=== PATIENT | female | born 1950 | race Caucasian/White ===

== ENCOUNTER 2018-02-10 14:37 | Inpatient (IN) ==
[2018-02-10] MEDS ORDERED: *HR* OxyCODONE Immed Rel 5 MG TABLET PO PRN ×2 (17:14→18:17)
[2018-02-10] MEDS: *HR* OxyCODONE Immed Rel 5 MG TABLET PO PRN ×2 (18:23→22:29)
[2018-02-10] MEDS: *HR* Metformin 500 MG TABLET PO SCH (18:29)
[2018-02-10] MEDS: Gabapentin 400 MG CAPSULE PO SCH (21:44)
[2018-02-11] MEDS: *HR* OxyCODONE Immed Rel 5 MG TABLET PO PRN ×2 (05:17→11:50)
[2018-02-11 06:03] LABS: Basophils % 0.3 %; Eosinophils # 0.3 K/mcL (0.0-0.6); Eosinophils % 3.3 %; Hematocrit 29.5 % (35.3-44.9); Hemoglobin 9.8 g/dL (11.5-15.4); Immature Granulocytes % 0.9 % (0-4); Lymphocytes # 1.9 K/mcL (0.6-4.6); Lymphocytes % 24.8 %; Mean Corpuscular HGB Conc 33.2 g/dL (31.6-35.5); Mean Corpuscular Hemoglobin 30.5 pg (28.0-33.3); Mean Corpuscular Volume 91.9 fL (83.0-100.0); Mean Platelet Volume 10.7 fL (9.4-12.4); Monocytes # 0.5 K/mcL (0.0-1.3); Monocytes % 6.8 %; Platelet Count 186 K/mcL (140-400); Red Blood Count 3.21 M/mcL (3.82-4.97); Red Cell Distribution Width 12.4 % (11.5-14.5); Segmented Neutrophils % 63.9 %
[2018-02-11 06:19] LABS: BUN/Creatinine Ratio 18 (6-26); Blood Urea Nitrogen 14 mg/dL (8-23); Calcium 8.5 mg/dL (8.6-10.3); Carbon Dioxide 31 mEq/L (23-29); Chloride 96 mEq/L (98-107); Glucose 143 mg/dL (70-105); Osmolality,Calculated 285 (280-300); Potassium 3.4 mEq/L (3.5-5.1); Sodium 136 mEq/L (136-145); eGFR For Non-African Americans > 60 (> 60)
[2018-02-11] MEDS: hydroCHLOROthiazide 25 MG TABLET PO SCH (08:07)
[2018-02-11] MEDS: Multivit/Ca/Min/Fe/FA 1 TAB TABLET PO SCH (08:08)
[2018-02-11] MEDS: *HR* Metformin 500 MG TABLET PO SCH ×2 (08:08→17:21)
[2018-02-11] MEDS: Gabapentin 400 MG CAPSULE PO SCH ×2 (08:08→19:48)
[2018-02-11] MEDS: Aspirin Enteric Coated 81 MG Tablet PO SCH (08:08)
[2018-02-11] MEDS: Verapamil ER (24 HR) 240 MG TABLET.ER PO SCH ×2 (08:13→11:50)
--- NOTE | 2018-02-11 08:37 | Internal Med History&Physical ---
Date of Encounter: 02/11/18 Time of Encounter: 08:35 Assessment and Plan (1) HTN (hypertension) Current visit: No Status: Chronic stlighly high today on meds will follow and adjust as needed Qualifiers: Hypertension type: essential hypertension Qualified Code(s): I10 - Essential (primary) hypertension (2) DMII (diabetes mellitus, type 2) Current visit: No Status: Chronic On meds obese Blood sugar TID followup and adjust as needed Qualifiers: Diabetes mellitus longwall foreman insulin use: unspecified longwall foreman insulin use status Diabetes mellitus complication status: with unspecified complications Qualified Code(s): E11.8 - Type 2 diabetes mellitus with unspecified complications (3) Status post lumbar spinal fusion Current visit: No Status: Acute s/p Surgery pain is well controlled with present meds , Some waht constipated on laxatives will follow .PT/OT consult DVT prevention (4) Anemia Current visit: No Status: Acute Most likely chronic in nature will give iron supplement and followup Qualifiers: Anemia type: unspecified type Qualified Code(s): D64.9 - Anemia, unspecified Internal Medicine - H&P: HPI Chief complaint: s/p lumbar fusion Admitted From: Hospital to Hospital Transfer History of present illness: Ms. Calvin is a 68 year old female who was transferred from [facility] s/ p Lumbar fusion for rehab . She started having increase weakness and pain in her legs , MRI showed compression of cord and ended up having surgery. At the present time she complains of some pain on surgical site , constipation however no other complains No chest pain SOB , cough fever or chills No complains of symptoms pertaining to UTI or vaginal discharge No epigastric pain . Past Med Surg Social Fam HX - Past Medical History Medical history: arthritis, diabetes, hyperlipidemia, hypertension Additional medical history: cataracts, Psychiatric history: no psych history - Past Surgical History Surgical History: cataract, herniorrhaphy, hysterectomy, knee replacement, other Additional surgical history: gastric bypass. tonsils,tummy tuck, - Social History Smoking Status: Never smoker Smokeless Tobacco Status: No Alcohol use: none Drug use: none - Family History Father Hx Family Cardiac Disorders: Yes Hx Family Endocrine Disorder: Yes (diabetes) Mother Living Status: Hx Family Cancer: Yes Internal Medicine - H&P: Meds Alendronate Sodium [Fosamax] 70 mg PO WE 01/05/16 [History] Gabapentin [Neurontin] 800 mg PO BID 01/05/16 [History] Verapamil HCl [Verapamil ER] 240 mg PO DAILY 01/05/16 [History] Aspirin [Glynn Aspirin EC] 81 mg PO DAILY 02/07/18 [History] Metformin HCl [Fortamet] 1,000 mg PO BID 02/07/18 [History] Multivitamin [Multivitamins] 1 each PO DAILY 02/07/18 [History] hydroCHLOROthiazide [Hydrochlorothiazide] 25 mg PO DAILY 02/07/18 [History] OxyCODONE Immed Rel [Roxicodone 5 MG] 5 mg PO Q4HR PRN 7 Days #30 tablet [Rx] 3 Allergy/AdvReac Type Severity Reaction Status Date / Time nifedipine [From Procardia] Allergy Intermediate Anxiety Verified 02/07/18 10:45 ibuprofen AdvReac see comment Verified 02/07/18 10:45 All Systems PM: A 10-system review of systems was performed and is negative for pertinent findings except as documented above in the HPI. - Constitutional Constitutional: no anorexia, no chills, no excessive sweating, no fatigue, no fever(s), no falls, no lethargy, no malaise, no night sweats, no weakness, no weight loss - EENT Eyes: no blurry vision, no diplopia, no discharge, no pain, no photophobia, no seeing flashes, no spots in vision Ears: no ear discharge Nose, mouth and throat: no bleeding gums, no dysphagia, no epistaxis, no lip swelling, no nasal congestion, no nasal discharge, no sinus pressure, no sore throat - Cardiovascular Cardiovascular ROS IM: no chest pain, no claudication, no diaphoresis, no dyspnea, no dyspnea on exertion, no edema, no irregular heart rhythm, no lightheadedness, no orthopnea, no palpitations, no paroxysmal nocturnal dyspnea , no syncope - Respiratory Respiratory: no cough, no dyspnea, no hemoptysis, no dyspnea on exertion, no stridor, no pain on inspiration, no chest congestion, no excessive phlegm production, no change in phlegm color, no pain with cough - Gastrointestinal Gastrointestinal: no abdominal pain, no bloating, no change in bowel habits, no change in stool character, no cramping, no diarrhea, no heartburn, no hematemesis, no loose stools, no melena, no nausea Additional comments: constipated - Genitourinary Genitourinary: no nocturia, no urinary hesitancy, no urinary incontinence, no urinary urgency Menstruation: post hysterectomy, post menopausal - Musculoskeletal Musculoskeletal ROS IM: back pain, no muscle cramps, no muscle weakness - Neurological Neurological ROS: no disequilibrium, no dizziness, no focal weakness, no paresthesias, no radicular pain - Constitutional Vitals: Temp Pulse Resp BP Pulse Ox 98.4 F 78 18 156/89 92 02/11/18 07:23 02/11/18 07:23 02/11/18 07:23 02/11/18 07:23 02/11/18 07:23 General appearance: Present: A&O X 3, morbidly obese, pleasant. Absent: severe distress - Head Head exam: Present: atraumatic - Eye Eye exam: Present: EOMI, PERRL Pupils: Present: PERRL - Neck Neck exam general surgery: Present: full ROM, supple. Absent: tenderness, nuchal rigidity - Respiratory Respiratory exam: Present: CTAB. Absent: accessory muscle use, chest wall tenderness, decreased breath sounds, prolonged expiratory phase, respiratory distress, rhonchi, stridor, wheezes, tachypnea - Cardiovascular Cardiovascular exam: Present: RRR, +S1, +S2. Absent: bradycardia, distant heart sounds, gallop, irregular rhythm, JVD - GI/Abdominal GI/Abdominal exam: Present: normal bowel sounds, soft. Absent: distended, firm , guarding, rigid, splenomegaly, tenderness Additional comments: Obese - Extremities Exam Extremities exam: Present: full ROM. Absent: calf tenderness, pedal edema, tenderness, warm - Back Exam Back exam: Absent: muscle spasm Additional comments: has rash associated with dressing - Neurological Exam Neurological exam: Present: CN II-XII intact, oriented X3, no focal deficits, strengths equal and symetr throughout. Absent: facial droop, speech deficit - Skin Skin exam: Present: intact, rash Additional comments: back suggested of local dressing reaction incision intact dressing not removed but its clean no discharge noted Internal Med - H&P Results - Labs CBC & Chem 7: 02/11/18 05:15 02/11/18 05:15 Labs: Short CBC 02/11/18 Range/Units 05:15 WBC 7.8 (4.3-11.1) K/mcL Hgb 9.8 L (11.5-15.4) g/dL Hct 29.5 L (35.3-44.9) % Plt Count 186 (140-400) K/mcL Neutrophils # 5.0 (1.6-8.9) K/mcL BMP 02/11/18 05:15 Sodium 136 Potassium 3.4 L Chloride 96 L Carbon Dioxide 31 H BUN 14 Creatinine 0.77 Glucose 143 H Calcium 8.5 L
[2018-02-12] MEDS: *HR* OxyCODONE Immed Rel 5 MG TABLET PO PRN ×5 (01:03→19:48)
--- NOTE | 2018-02-12 08:17 | Internal Med Progress Note ---
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 insulin use: unspecified terminal gauger supervisor insulin use status Diabetes mellitus complication status: with unspecified complications Qualified Code(s): E11.8 - Type 2 diabetes mellitus with unspecified complications (3) Status post lumbar spinal fusion Current Visit: No Status: Acute Assessment and plan: Wound clean improving slowly getting PT back brace for support (4) Anemia Current Visit: No Status: Acute Assessment and plan: Stable On iron pills Qualifiers: Anemia type: unspecified type Qualified Code(s): D64.9 - Anemia, unspecified - Subjective Interval history: Seen as followup Had a much better night slept well pain is well controlled . had bowel movement . She is walking and actively engaged in PT . Afebrile - Constitutional Vitals: Temp Pulse Resp BP Pulse Ox 98.7 F 62 16 135/81 96 02/12/18 06:53 02/12/18 06:53 02/12/18 06:53 02/12/18 06:53 02/12/18 06:53 General appearance: Present: A&O X 3, morbidly obese, pleasant, answers questions appropriately. Absent: severe distress - Head Head exam: Present: atraumatic - Eye Eye exam: Present: EOMI, PERRL Pupils: Present: PERRL - Neck Neck exam general surgery: Present: supple. Absent: tenderness, nuchal rigidity - Respiratory Respiratory exam: Present: CTAB. Absent: accessory muscle use, chest wall tenderness, decreased breath sounds, respiratory distress, rhonchi, stridor, wheezes, tachypnea - Cardiovascular Cardiovascular exam: Present: RRR, +S1, +S2. Absent: JVD - GI/Abdominal GI/Abdominal exam: Present: normal bowel sounds, soft. Absent: diminished bowel sounds, distended, firm, guarding, rebound, rigid, tenderness - Extremities Exam Extremities exam: Absent: pedal edema, tenderness - Incison Incision: Present: clean and dry. Absent: draining - Neurological Exam Neurological exam: Present: alert, CN II-XII intact, oriented X3, no focal deficits. Absent: facial droop, speech deficit Internal Medicine: Result - Labs CBC & Chem 7: 02/11/18 05:15 02/11/18 05:15 - VTE Documentation of Mechanical Device: Graduated compression elastic hosiery Consult Discharge Plan - Plan Referrals: John Nick Jr, MD [Primary Care Provider] -
[2018-02-12] MEDS: *HR* Metformin 500 MG TABLET PO SCH ×2 (08:22→17:16)
[2018-02-12] MEDS: Verapamil ER (24 HR) 240 MG TABLET.ER PO SCH (08:22)
[2018-02-12] MEDS: Aspirin Enteric Coated 81 MG Tablet PO SCH (08:22)
[2018-02-12] MEDS: Multivit/Ca/Min/Fe/FA 1 TAB TABLET PO SCH (08:22)
[2018-02-12] MEDS: hydroCHLOROthiazide 25 MG TABLET PO SCH (08:22)
[2018-02-12] MEDS: Gabapentin 400 MG CAPSULE PO SCH ×2 (08:22→19:48)
[2018-02-13] MEDS: *HR* OxyCODONE Immed Rel 5 MG TABLET PO PRN ×6 (00:34→22:18)
[2018-02-13 06:12] LABS: Basophils % 0.4 %; Eosinophils # 0.3 K/mcL (0.0-0.6); Eosinophils % 3.6 %; Hematocrit 30.7 % (35.3-44.9); Hemoglobin 10.1 g/dL (11.5-15.4); Immature Granulocytes % 1.3 % (0-4); Mean Corpuscular HGB Conc 32.9 g/dL (31.6-35.5); Mean Corpuscular Hemoglobin 30.4 pg (28.0-33.3); Mean Corpuscular Volume 92.5 fL (83.0-100.0); Mean Platelet Volume 9.7 fL (9.4-12.4); Monocytes # 0.6 K/mcL (0.0-1.3); Neutrophils # 4.1 K/mcL (1.6-8.9); Platelet Count 219 K/mcL (140-400); Red Blood Count 3.32 M/mcL (3.82-4.97); Red Cell Distribution Width 12.8 % (11.5-14.5); Segmented Neutrophils % 58.7 %
[2018-02-13 07:44] LABS: BUN/Creatinine Ratio 19 (6-26); Blood Urea Nitrogen 13 mg/dL (8-23); Carbon Dioxide 31 mEq/L (23-29); Chloride 96 mEq/L (98-107); Glucose 146 mg/dL (70-105); Osmolality,Calculated 283 (280-300); Potassium 3.4 mEq/L (3.5-5.1); Sodium 135 mEq/L (136-145); eGFR For Non-African Americans > 60 (> 60)
[2018-02-13] MEDS: Gabapentin 400 MG CAPSULE PO SCH ×2 (08:08→18:14)
[2018-02-13] MEDS: hydroCHLOROthiazide 25 MG TABLET PO SCH (08:08)
[2018-02-13] MEDS: Multivit/Ca/Min/Fe/FA 1 TAB TABLET PO SCH (08:08)
[2018-02-13] MEDS: Aspirin Enteric Coated 81 MG Tablet PO SCH (08:08)
[2018-02-13] MEDS: *HR* Metformin 500 MG TABLET PO SCH ×2 (08:08→18:10)
[2018-02-13] MEDS: Verapamil ER (24 HR) 240 MG TABLET.ER PO SCH (08:10)
[2018-02-13 10:16] LABS: Estimated Average Glucose 151 mg/dl; Hemoglobin A1C 6.9 %
--- NOTE | 2018-02-13 12:08 | Internal Med Progress Note ---
Date of Encounter: 02/13/18 Time of Encounter: 12:05 - Assessment and plan (1) Status post lumbar spinal fusion Current Visit: Yes Status: Acute Assessment and plan: Continue PT and OT. Continue to wear back brace as instructed. Continue current medications. Follow up with ortho as scheduled. (2) HTN (hypertension) Current Visit: Yes Status: Chronic Assessment and plan: Controlled with current medication. Monitor blood pressure. Qualifiers: Hypertension type: essential hypertension Qualified Code(s): I10 - Essential (primary) hypertension (3) DMII (diabetes mellitus, type 2) Current Visit: Yes Status: Chronic Assessment and plan: Controlled with current medication. Continue to monitor fingerstick blood sugars. Will adjust medications as necessary. Qualifiers: Diabetes mellitus jail insulin use: unspecified terminal operator insulin use status Diabetes mellitus complication status: with unspecified complications Qualified Code(s): E11.8 - Type 2 diabetes mellitus with unspecified complications - Time Spent With Patient less than 15 minutes - Subjective Interval history: Participating well with therapy. States rights sciatic pain. Ambulating with Walker. Wearing back brace. States no bowel movement the past few days. Denies any issues with bladder. Denies fever, chills, nausea vomiting or diarrhea. Denies shortness of breath or chest pain. Maintaining appetite and hydration. - Constitutional Vitals: Temp Pulse Resp BP Pulse Ox 98.4 F 63 16 151/93 95 02/13/18 07:28 02/13/18 07:28 02/13/18 07:28 02/13/18 07:28 02/13/18 07:28 General appearance: Present: A&O X 3, morbidly obese, pleasant, answers questions appropriately. Absent: severe distress - Head Head exam: Present: atraumatic, normocephalic - Eye Eye exam: Present: PERRL, conjuntiva pink, sclera anicteric Pupils: Present: PERRL - Neck Neck exam general surgery: Present: supple, trachea midline. Absent: lymphadenopathy - Respiratory Respiratory exam: Present: CTAB. Absent: accessory muscle use, rales, rhonchi, wheezes - Cardiovascular Cardiovascular exam: Present: RRR, +S1, +S2. Absent: diastolic murmur, gallop, rubs, systolic murmur - GI/Abdominal GI/Abdominal exam: Present: normal bowel sounds, soft, no peritoneal signs. Absent: distended, tenderness - Extremities Exam Extremities exam: Present: warm, radial pulses palpable and symmetrical. Absent : calf tenderness, cyanotic, pedal edema - Neurological Exam Neurological exam: Present: CN II-XII intact, oriented X3, no focal deficits. Absent: pronater drift, facial droop, speech deficit - Skin Skin exam: Present: dry, intact Internal Medicine: Result - Labs CBC & Chem 7: 02/13/18 05:55 02/13/18 05:55 Labs: Short CBC 02/13/18 Range/Units 05:55 WBC 7.0 (4.3-11.1) K/mcL Hgb 10.1 L (11.5-15.4) g/dL Hct 30.7 L (35.3-44.9) % Plt Count 219 (140-400) K/mcL Neutrophils # 4.1 (1.6-8.9) K/mcL BMP 02/13/18 05:55 Sodium 135 L Potassium 3.4 L Chloride 96 L Carbon Dioxide 31 H BUN 13 Creatinine 0.70 Glucose 146 H Calcium 9.0 - VTE Documentation of Mechanical Device: Graduated compression elastic hosiery Consult Discharge Plan - Plan Referrals: John Nick Jr, MD [Primary Care Provider] -
[2018-02-13] MEDS: Methocarbamol 750 MG TABLET PO PRN ×2 (13:40→23:16)
[2018-02-13] MEDS ORDERED: *HR* OxyCODONE Immed Rel 5 MG TABLET PO PRN (14:39)
[2018-02-14] MEDS: *HR* OxyCODONE Immed Rel 5 MG TABLET PO PRN (02:08)
[2018-02-14] MEDS: *HR* OxyCODONE Immed Rel 15 MG TABLET PO PRN ×4 (06:00→21:41)
[2018-02-14] MEDS: Methocarbamol 750 MG TABLET PO PRN ×2 (08:03→20:39)
[2018-02-14] MEDS: Gabapentin 400 MG CAPSULE PO SCH ×2 (08:03→20:29)
[2018-02-14] MEDS: *HR* Metformin 500 MG TABLET PO SCH ×2 (08:04→17:29)
[2018-02-14] MEDS: Multivit/Ca/Min/Fe/FA 1 TAB TABLET PO SCH (08:04)
[2018-02-14] MEDS: Aspirin Enteric Coated 81 MG Tablet PO SCH (08:04)
[2018-02-14] MEDS: hydroCHLOROthiazide 25 MG TABLET PO SCH (08:04)
[2018-02-14] MEDS: Verapamil ER (24 HR) 240 MG TABLET.ER PO SCH (10:29)
--- NOTE | 2018-02-14 11:20 | Internal Med Progress Note ---
Date of Encounter: 02/14/18 Time of Encounter: 11:13 - Assessment and plan (1) Status post lumbar spinal fusion Current Visit: Yes Status: Acute Assessment and plan: Continue PT and OT. Continue to wear back brace as instructed. Continue current medications. Follow up with ortho as scheduled. (2) HTN (hypertension) Current Visit: Yes Status: Chronic Assessment and plan: Controlled with current medication. Monitor blood pressure. Qualifiers: Hypertension type: essential hypertension Qualified Code(s): I10 - Essential (primary) hypertension (3) DMII (diabetes mellitus, type 2) Current Visit: Yes Status: Chronic Assessment and plan: Controlled with current medication. Continue to monitor fingerstick blood sugars. Will adjust medications as necessary. Qualifiers: Diabetes mellitus assistant terminal manager insulin use: unspecified assistant terminal manager insulin use status Diabetes mellitus complication status: with unspecified complications Qualified Code(s): E11.8 - Type 2 diabetes mellitus with unspecified complications (4) Contact dermatitis Current Visit: Yes Status: Acute Assessment and plan: erythematous rash to back, appears to be from moisture and irritation from brace. will monitor and order benadryl for itching. Qualifiers: Contact dermatitis type: unspecified Contact dermatitis trigger: unspecified trigger Qualified Code(s): L25.9 - Unspecified contact dermatitis , unspecified cause - Time Spent With Patient less than 15 minutes - Subjective Interval history: Participating well with therapy. States rights sciatic pain continues but slight improvement from yesterday. Ambulating with Walker. Wearing back brace. bowels moved yesterday. Denies any issues with bladder. Denies fever, chills, nausea vomiting or diarrhea. Denies shortness of breath or chest pain. Maintaining appetite and hydration. c/o back feeling itchy. - Constitutional Vitals: Temp Pulse Resp BP Pulse Ox 97.3 F L 64 16 152/67 95 02/14/18 07:20 02/14/18 07:20 02/14/18 07:20 02/14/18 07:20 02/14/18 07:20 General appearance: Present: A&O X 3, morbidly obese, pleasant, answers questions appropriately. Absent: severe distress - Head Head exam: Present: atraumatic, normocephalic - Eye Eye exam: Present: PERRL, conjuntiva pink, sclera anicteric Pupils: Present: PERRL - Neck Neck exam general surgery: Present: supple, trachea midline. Absent: lymphadenopathy - Respiratory Respiratory exam: Present: CTAB. Absent: accessory muscle use, rales, rhonchi, wheezes - Cardiovascular Cardiovascular exam: Present: RRR, +S1, +S2. Absent: diastolic murmur, gallop, rubs, systolic murmur - GI/Abdominal GI/Abdominal exam: Present: normal bowel sounds, soft, no peritoneal signs. Absent: distended, tenderness - Extremities Exam Extremities exam: Present: warm, radial pulses palpable and symmetrical. Absent : calf tenderness, cyanotic, pedal edema - Incison Comments: lumbar incision, drsg dry and intact. surrounding erythema. skin intact. - Neurological Exam Neurological exam: Present: CN II-XII intact, oriented X3, no focal deficits. Absent: pronater drift, facial droop, speech deficit - Skin Skin exam: Present: dry, intact Internal Medicine: Result - Labs CBC & Chem 7: 02/13/18 05:55 02/13/18 05:55 - VTE Documentation of Mechanical Device: Graduated compression elastic hosiery Consult Discharge Plan - Plan Referrals: John Nick Jr, MD [Primary Care Provider] -
[2018-02-15] MEDS: *HR* OxyCODONE Immed Rel 15 MG TABLET PO PRN ×4 (03:03→21:43)
[2018-02-15] MEDS: Methocarbamol 750 MG TABLET PO PRN (05:57)
[2018-02-15] MEDS: *HR* Metformin 500 MG TABLET PO SCH ×2 (08:25→17:47)
[2018-02-15] MEDS: Gabapentin 400 MG CAPSULE PO SCH (08:25)
[2018-02-15] MEDS: Multivit/Ca/Min/Fe/FA 1 TAB TABLET PO SCH (08:26)
[2018-02-15] MEDS: Aspirin Enteric Coated 81 MG Tablet PO SCH (08:26)
[2018-02-15] MEDS: hydroCHLOROthiazide 25 MG TABLET PO SCH (08:26)
[2018-02-15] MEDS: Verapamil ER (24 HR) 240 MG TABLET.ER PO SCH (08:26)
--- NOTE | 2018-02-15 10:47 | Internal Med Progress Note ---
Date of Encounter: 02/15/18 Time of Encounter: 10:45 - Assessment and plan (1) Status post lumbar spinal fusion Current Visit: Yes Status: Acute Assessment and plan: No acute issues. Patient continues to complain of radicular symptoms down the right hip around to her right groin. States the pain is similar in characteristics to preoperative pain. Has a slight pain to surgical site on lumbar area. Surgical incision appears healthy. She continues to use TLSO brace. Noted only slight right hip antalgic weakness. We will continue with physical therapy. Pain is minimal managed with current medications. (2) HTN (hypertension) Current Visit: Yes Status: Chronic Assessment and plan: Vital signs stable. We will continue with current medications Qualifiers: Hypertension type: essential hypertension Qualified Code(s): I10 - Essential (primary) hypertension (3) DMII (diabetes mellitus, type 2) Current Visit: Yes Status: Chronic Assessment and plan: No acute issues. Fingerstick showed glucose has been fairly well-controlled with most readings less than 150. We will continue with sliding scale coverage and current regimen Qualifiers: Diabetes mellitus longterm insulin use: unspecified medical terminologist insulin use status Diabetes mellitus complication status: with unspecified complications Qualified Code(s): E11.8 - Type 2 diabetes mellitus with unspecified complications - Time Spent With Patient less than 15 minutes - Subjective Interval history: Patient currently appears relaxed but has complaints of radicular pain that radiates down her right hip crosses over into the right groin area. She states that her pain as intermittent and progresses during mobilization. Patient states that the characteristics of the pain are quite similar to preoperative symptoms. Denies any incontinence or retention symptoms. Denies any paresthesia. Patient states that her pain has been managed well with current oral medications. - Constitutional Vitals: Temp Pulse Resp BP Pulse Ox 97.0 F L 64 16 158/68 95 02/15/18 07:24 02/15/18 07:24 02/15/18 07:24 02/15/18 07:24 02/15/18 07:24 General appearance: Present: A&O X 3, morbidly obese, pleasant, answers questions appropriately. Absent: severe distress - Head Head exam: Present: atraumatic, normocephalic - Eye Eye exam: Present: PERRL, conjuntiva pink, sclera anicteric Pupils: Present: PERRL - Neck Neck exam general surgery: Present: supple, trachea midline. Absent: lymphadenopathy - Respiratory Respiratory exam: Present: CTAB. Absent: accessory muscle use, rales, rhonchi, wheezes - Cardiovascular Cardiovascular exam: Present: RRR, +S1, +S2. Absent: diastolic murmur, gallop, rubs, systolic murmur - GI/Abdominal GI/Abdominal exam: Present: normal bowel sounds, soft, no peritoneal signs. Absent: distended, tenderness - Extremities Exam Extremities exam: Present: warm, radial pulses palpable and symmetrical. Absent : calf tenderness, cyanotic, pedal edema - Back Exam Additional comments: Midline lumbar surgical incision appears dry and intact. No drainage or edema noted. Noted slight rash to lumbar area. TLSO brace and use. - Neurological Exam Neurological exam: Present: CN II-XII intact, oriented X3, no focal deficits. Absent: pronater drift, facial droop, speech deficit Additional comments: No focal deficits noted on exam. Patient with an antalgic weakness to right hip. - Skin Skin exam: Present: dry, intact Internal Medicine: Result - Labs CBC & Chem 7: 02/13/18 05:55 02/13/18 05:55 - VTE Documentation of Mechanical Device: Graduated compression elastic hosiery Consult Discharge Plan - Plan Referrals: John Nick Jr, MD [Primary Care Provider] -
[2018-02-15] MEDS ORDERED: tiZANidine 4 MG TABLET PO SCH (15:00)
[2018-02-15] MEDS: Gabapentin 300 MG CAPSULE PO SCH ×2 (15:03→21:42)
[2018-02-15] MEDS ORDERED: NON-FORMULARY MEDICATION 1 EACH EACH (Alendronate Sodium [Fosamax] 70 MG) PO SCH (17:14)
[2018-02-16] MEDS: Methocarbamol 750 MG TABLET PO PRN ×2 (00:35→09:20)
[2018-02-16] MEDS: *HR* OxyCODONE Immed Rel 15 MG TABLET PO PRN ×5 (01:48→19:58)
[2018-02-16] MEDS: Multivit/Ca/Min/Fe/FA 1 TAB TABLET PO SCH (08:22)
[2018-02-16] MEDS: Magnesium Oxide 400 MG TABLET PO SCH (08:22)
[2018-02-16] MEDS: *HR* Metformin 500 MG TABLET PO SCH ×2 (08:22→17:21)
[2018-02-16] MEDS: Aspirin Enteric Coated 81 MG Tablet PO SCH (08:23)
[2018-02-16] MEDS: hydroCHLOROthiazide 25 MG TABLET PO SCH (08:23)
[2018-02-16] MEDS: Verapamil ER (24 HR) 240 MG TABLET.ER PO SCH (08:23)
[2018-02-16] MEDS: Gabapentin 300 MG CAPSULE PO SCH ×3 (08:23→19:57)
--- NOTE | 2018-02-16 11:14 | Internal Med Progress Note ---
Date of Encounter: 02/16/18 Time of Encounter: 11:11 - Assessment and plan (1) Status post lumbar spinal fusion Current Visit: Yes Status: Acute Assessment and plan: No acute issues. Patient continues to complain of radicular symptoms down the right hip around to her right groin. States the pain is similar in characteristics to preoperative pain. Surgical incision appears healthy. She continues to use TLSO brace. Tried use of Zanaflex yesterday, but patient has sensitivity to it and will continue on Robaxin. We will continue with physical therapy. Pain is minimal managed with current medications. (2) HTN (hypertension) Current Visit: Yes Status: Chronic Assessment and plan: Vital signs stable. We will continue with current medications Qualifiers: Hypertension type: essential hypertension Qualified Code(s): I10 - Essential (primary) hypertension (3) DMII (diabetes mellitus, type 2) Current Visit: Yes Status: Chronic Assessment and plan: No acute issues. Fingerstick showed glucose has been fairly well-controlled with most readings less than 150. We will continue with sliding scale coverage and current regimen Qualifiers: Diabetes mellitus director long term care insulin use: unspecified snf insulin use status Diabetes mellitus complication status: with unspecified complications Qualified Code(s): E11.8 - Type 2 diabetes mellitus with unspecified complications - Time Spent With Patient less than 15 minutes - Subjective Interval history: Patient continues to appear relaxed but continues to have complaints of radicular pain that radiates down her right hip crosses over into the right groin area. She states that her pain as intermittent and progresses during mobilization and that it has been improving. Patient states that the characteristics of the pain are quite similar to preoperative symptoms. Denies any incontinence or retention symptoms. Denies any paresthesia. Patient states that her pain has been managed well with current oral medications. Patient was changed to Zanaflex yesterday for muscle spasms, but had a sensitivity response with the medications during which she became hypotensive and lightheaded. She was changed back to her Robaxin and today denies any similar symptoms. - Constitutional Vitals: Temp Pulse Resp BP Pulse Ox 97.8 F 67 16 160/76 96 02/16/18 06:34 02/16/18 06:34 02/16/18 06:34 02/16/18 06:34 02/16/18 06:34 General appearance: Present: A&O X 3, morbidly obese, pleasant, answers questions appropriately. Absent: severe distress - Head Head exam: Present: atraumatic, normocephalic - Eye Eye exam: Present: PERRL, conjuntiva pink, sclera anicteric Pupils: Present: PERRL - Neck Neck exam general surgery: Present: supple, trachea midline. Absent: lymphadenopathy - Respiratory Respiratory exam: Present: CTAB. Absent: accessory muscle use, rales, rhonchi, wheezes - Cardiovascular Cardiovascular exam: Present: RRR, +S1, +S2. Absent: diastolic murmur, gallop, rubs, systolic murmur - GI/Abdominal GI/Abdominal exam: Present: normal bowel sounds, soft, no peritoneal signs. Absent: distended, tenderness - Extremities Exam Extremities exam: Present: warm, radial pulses palpable and symmetrical. Absent : calf tenderness, cyanotic, pedal edema - Back Exam Additional comments: Midline lumbar incision remains dry and intact and appears to healing well. No edema or echymsis - Neurological Exam Neurological exam: Present: CN II-XII intact, oriented X3, no focal deficits. Absent: pronater drift, facial droop, speech deficit Additional comments: Patient continues to have radicular symptoms of pain that radiates down the right hip and around to the right groin. Denies any paresthesia - Skin Skin exam: Present: dry, intact Internal Medicine: Result - Labs CBC & Chem 7: 02/13/18 05:55 02/13/18 05:55 - VTE Documentation of Mechanical Device: Graduated compression elastic hosiery Consult Discharge Plan - Plan Referrals: John Nick Jr, MD [Primary Care Provider] -
[2018-02-17] MEDS: *HR* OxyCODONE Immed Rel 15 MG TABLET PO PRN ×6 (01:02→23:17)
[2018-02-17] MEDS: Methocarbamol 750 MG TABLET PO PRN ×2 (02:58→16:41)
[2018-02-17 06:34] LABS: Hematocrit 31.7 % (35.3-44.9); Hemoglobin 10.6 g/dL (11.5-15.4); Mean Corpuscular HGB Conc 33.4 g/dL (31.6-35.5); Mean Corpuscular Hemoglobin 30.6 pg (28.0-33.3); Mean Corpuscular Volume 91.6 fL (83.0-100.0); Mean Platelet Volume 9.3 fL (9.4-12.4); Platelet Count 284 K/mcL (140-400); Red Blood Count 3.46 M/mcL (3.82-4.97); Red Cell Distribution Width 12.8 % (11.5-14.5)
[2018-02-17 06:52] LABS: BUN/Creatinine Ratio 20 (6-26); Blood Urea Nitrogen 16 mg/dL (8-23); Calcium 9.2 mg/dL (8.6-10.3); Carbon Dioxide 29 mEq/L (23-29); Chloride 95 mEq/L (98-107); Glucose 145 mg/dL (70-105); Magnesium 1.9 mg/dL (1.6-2.6); Osmolality,Calculated 282 (280-300); Potassium 3.8 mEq/L (3.5-5.1); Sodium 134 mEq/L (136-145); eGFR For Non-African Americans > 60 (> 60)
[2018-02-17] MEDS: Aspirin Enteric Coated 81 MG Tablet PO SCH (08:04)
[2018-02-17] MEDS: *HR* Metformin 500 MG TABLET PO SCH ×2 (08:05→16:41)
[2018-02-17] MEDS: Magnesium Oxide 400 MG TABLET PO SCH (08:05)
[2018-02-17] MEDS: hydroCHLOROthiazide 25 MG TABLET PO SCH (08:05)
[2018-02-17] MEDS: Gabapentin 300 MG CAPSULE PO SCH ×3 (08:05→21:02)
[2018-02-17] MEDS: Multivit/Ca/Min/Fe/FA 1 TAB TABLET PO SCH (08:05)
[2018-02-17] MEDS: Verapamil ER (24 HR) 240 MG TABLET.ER PO SCH (08:05)
--- NOTE | 2018-02-17 09:51 | Internal Med Progress Note ---
Date of Encounter: 02/17/18 Time of Encounter: 09:49 - Assessment and plan (1) Status post lumbar spinal fusion Current Visit: Yes Status: Acute Assessment and plan: No acute issues. Patient continues to complain of radicular symptoms down the right hip around to her right groin. States the pain is similar in characteristics to preoperative pain. Surgical incision appears healthy. She continues to use TLSO brace. Continued complaints of occasional muscle spasms. We will continue on Robaxin current pain medications. Patient continues to participate in physical therapy and progressing well. (2) HTN (hypertension) Current Visit: Yes Status: Chronic Assessment and plan: Vital signs stable. We will continue with current medications Qualifiers: Hypertension type: essential hypertension Qualified Code(s): I10 - Essential (primary) hypertension (3) DMII (diabetes mellitus, type 2) Current Visit: Yes Status: Chronic Assessment and plan: No acute issues. Fingerstick showed glucose has been fairly well-controlled with most readings less than 150. We will continue with sliding scale coverage and current regimen Qualifiers: Diabetes mellitus internist medical doctor md insulin use: unspecified assisted insulin use status Diabetes mellitus complication status: with unspecified complications Qualified Code(s): E11.8 - Type 2 diabetes mellitus with unspecified complications - Time Spent With Patient less than 15 minutes - Subjective Interval history: Patient continues to complain of right hip and leg radicular symptoms that intermittently occurred. Patient states that her pain is somewhat better controlled over the past few days with current adjustments. Patient states that her pain is similar to her preoperative symptoms patient describes pain as a sharp pain that radiates down the right hip. States that she occasionally has some muscle spasms that accompanied the pain. Denies any decreased sensation. Denies any motor deficits. Denies any other discomforts or shortness of breath. Denies any constipation - Constitutional Vitals: Temp Pulse Resp BP Pulse Ox 98.1 F 60 16 143/60 94 02/17/18 07:00 02/17/18 07:00 02/17/18 07:00 02/17/18 07:00 02/17/18 07:00 General appearance: Present: A&O X 3, morbidly obese, pleasant, answers questions appropriately. Absent: severe distress - Head Head exam: Present: atraumatic, normocephalic - Eye Eye exam: Present: PERRL, conjuntiva pink, sclera anicteric Pupils: Present: PERRL - Neck Neck exam general surgery: Present: supple, trachea midline. Absent: lymphadenopathy - Respiratory Respiratory exam: Present: CTAB. Absent: accessory muscle use, rales, rhonchi, wheezes Additional comments: Lungs are clear throughout upper roberto and diminished towards basilar roberto. Respiratory effort appears relaxed. No productive cough noted. - Cardiovascular Cardiovascular exam: Present: RRR, +S1, +S2. Absent: diastolic murmur, gallop, rubs, systolic murmur - GI/Abdominal GI/Abdominal exam: Present: normal bowel sounds, soft, no peritoneal signs. Absent: distended, tenderness - Extremities Exam Extremities exam: Present: warm, radial pulses palpable and symmetrical. Absent : calf tenderness, cyanotic, pedal edema - Back Exam Additional comments: Midline lumbar incision appears dry and intact with no erythema noted. Patient continues to have some redness to her lower back area, but appears in a pattern of her TLSO brace. TLSO brace in place. - Neurological Exam Neurological exam: Present: CN II-XII intact, oriented X3, no focal deficits. Absent: pronater drift, facial droop, speech deficit Additional comments: Patient continues to have sharp intermittent radicular pain down the right hip and leg. Patient states that the pain goes down the right hip and comes around anteriorly course the groin. Lungs all extremities with equal strength with motor strength at 5/5. Slight tenderness on right hip flexion. No decreased sensation noted - Skin Skin exam: Present: dry, intact Internal Medicine: Result - Labs CBC & Chem 7: 02/17/18 06:25 02/17/18 06:25 Labs: Short CBC 02/17/18 Range/Units 06:25 WBC 7.2 (4.3-11.1) K/mcL Hgb 10.6 L (11.5-15.4) g/dL Hct 31.7 L (35.3-44.9) % Plt Count 284 (140-400) K/mcL BMP 02/17/18 06:25 Sodium 134 L Potassium 3.8 Chloride 95 L Carbon Dioxide 29 BUN 16 Creatinine 0.79 Glucose 145 H Calcium 9.2 - VTE Documentation of Mechanical Device: Graduated compression elastic hosiery Consult Discharge Plan - Plan Referrals: John Nick Jr, MD [Primary Care Provider] -
--- NOTE | 2018-02-17 11:43 | Discharge Summary ---
Orders not resulted at time of discharge: Pending orders 02/20/18 14:36 MRSA Surveillance Screen [MOLMIC] Routine Date of Encounter: 02/20/18 Time of Encounter: 11:40 - Discharge Diagnosis (1) Status post lumbar spinal fusion Priority: Primary Status: Acute Comments: Patient was admitted to this facility for rehabilitation after having a and L3- 4 toribio/fix/fusion. Patient recovery at [facility] was uneventful. Patient was admitted here for rehabilitation and progressed well during her stay. Patient noted ambulating in [place] with the walker. Patient continued to have postoperative pain with radicular symptoms down the right hip that would radiate along to the right groin anteriorly. Patient's pain medications were titrated and patient states effectiveness but that her pain would escalate during mobilization. Surgical incision remained healthy and intact. Patient did have reddened areas to the lower lumbar area, likely secondary to wearing her TLSO brace continuously. Patient is to continue follow-up with her orthopedic surgeon and with her PCP after discharge. (2) HTN (hypertension) Priority: Secondary Status: Chronic Comments: No acute issues during her stay at this facility. Vital signs remained stable. Patient did have some low blood pressure after starting on Zanaflex. Patient was currently sensitive Zanaflex and it was discontinued and changed back to Robaxin. Patient pressures remained stable since restarting Robaxin. Patient recommended to continue home medications after discharge and follow-up PCP Qualifiers: Hypertension type: essential hypertension Qualified Code(s): I10 - Essential (primary) hypertension (3) DMII (diabetes mellitus, type 2) Priority: Secondary Status: Chronic Comments: Patients glucose has been well controlled during her stay at this facility. Patient is to continue with current home medications after discharge and follow- up with PCP Qualifiers: Diabetes mellitus halfway insulin use: unspecified halfway insulin use status Diabetes mellitus complication status: with unspecified complications Qualified Code(s): E11.8 - Type 2 diabetes mellitus with unspecified complications Hospital course: Ms. Calvin is a 68 year old female , who was admitted to this facility for rehabilitation secondary to deconditioning after having a lumbar L3-4 toribio/fix/ fusion. Patient had an uneventful recovery and was transferred to this facility where she has dissipated and physical therapy and has progressed well. Patient has had some issues with pain control, stating she continues to have radicular symptoms of pain that radiates down her right hip and crosses over anteriorly to her right groin. Patient states occasionally she does have muscle spasms that are also involved. Denies any decreased sensory or motor function. Patient states that these symptoms were similar to her preoperative symptoms. Patient's pain medications have been titrated and currently she states tolerable with current pain regimen. Patient has been ambulating with walker and continues to progress well. Surgical incision remains intact but appears reddened along the incision. Patient has had daily dressing changes and was started on doxycycline until she can be seen by her surgeon. Patient wears TLSO continuously although she can take it off while in bed. Patient recommended to follow up with her orthopedic surgeon tomorrow and to make an appointment with her PCP due to her admitted history of hypertension and diabetes. Patient's glucose has been well controlled during her stay at this facility requiring minimal sliding scale coverage. Discharge discussed with: patient Time spent discussing smoking cessation with patient: 3 to 10 minutes - Time Spent with Patient Total time spent providing and/or coordinating discharge services: Less than 30 minutes - Discharge Medications Home Medications: Alendronate Sodium [Fosamax] 70 mg PO WE 01/05/16 [History] Gabapentin [Neurontin] 800 mg PO BID 01/05/16 [History] Verapamil HCl [Verapamil ER] 240 mg PO DAILY 01/05/16 [History] Aspirin [[place] Aspirin EC] 81 mg PO DAILY 02/07/18 [History] Metformin HCl [Fortamet] 1,000 mg PO BID 02/07/18 [History] Multivitamin [Multivitamins] 1 each PO DAILY 02/07/18 [History] hydroCHLOROthiazide [Hydrochlorothiazide] 25 mg PO DAILY 02/07/18 [History] OxyCODONE Immed Rel [Roxicodone 5 MG] 5 mg PO Q4HR PRN 7 Days #30 tablet [Rx] Allergies/Adverse Reactions: 3 Allergy/AdvReac Type Severity Reaction Status Date / Time nifedipine [From Procardia] Allergy Intermediate Anxiety Verified 02/07/18 10:45 Tizanidine [From Zanaflex] AdvReac Severe Hypotension Verified 02/16/18 12:18 ibuprofen AdvReac see comment Verified 02/07/18 10:45 Date of admission: 02/10/18 16:58 Primary care physician: John Ncik Jr MD Consults: 02/10/18 17:15 Consult to Occupational Therapy [CONS] Routine Comment: Evaluate, develop and implement POC Reason for Consult: eval Does patient have active BEDREST order?: No Is patient medically & hemodynamically stable?: Yes Consult to Physical Therapy [CONS] Routine Comment: Evaluate, develop and implement POC Reason for Consult: eval Does patient have active BEDREST order?: No Is patient medically & hemodynamically stable?: No Consult to Recreational Therapy [CONS] Routine Comment: Evaluate, develop and implement POC Consult to Envelope Sealer Operator [CONS] Routine Reason for SW Consult: d/c planning 02/13/18 15:42 Consult to Physical Medicine/Rehab [CONS] Routine Reason for Consult: Please evaluate and manage therapies' guidelines and recommend pathway to reconditioning. Time Notified: 13:00 Call Completed: Yes Discharging clinician: Ramiro Jarrett - Constitutional Vitals: Temp Pulse Resp BP Pulse Ox 98.1 F 60 16 143/60 94 02/17/18 07:00 02/17/18 07:00 02/17/18 07:00 02/17/18 07:00 02/17/18 07:00 General appearance: Present: A&O X 3, morbidly obese, pleasant, answers questions appropriately. Absent: severe distress - Head Head exam: Present: atraumatic, normocephalic - Eye Eye exam: Present: PERRL, conjuntiva pink, sclera anicteric Pupils: Present: PERRL - Neck Neck exam general surgery: Present: supple, trachea midline. Absent: lymphadenopathy - Respiratory Respiratory exam: Present: CTAB. Absent: accessory muscle use, rales, rhonchi, wheezes - Cardiovascular Cardiovascular exam: Present: RRR, +S1, +S2. Absent: diastolic murmur, gallop, rubs, systolic murmur - GI/Abdominal GI/Abdominal exam: Present: normal bowel sounds, soft, no peritoneal signs. Absent: distended, tenderness - Extremities Exam Extremities exam: Present: warm, radial pulses palpable and symmetrical. Absent : calf tenderness, cyanotic, pedal edema - Back Exam Additional comments: Midline lumbar incision appears intact, but has moderate amount of erythema along borders. Currently no drainage received. Surrounding lumbar area slightly reddened from the continuous use of TLSO brace which remains in place - Neurological Exam Neurological exam: Present: CN II-XII intact, oriented X3, no focal deficits. Absent: pronater drift, facial droop, speech deficit - Skin Skin exam: Present: dry, intact - Patient Status Disposition: Home, Self-Care Condition: Good Functional capacity at discharge: uses cane/walker Overall status at discharge: patient is progressing back to baseline - Discharge Instructions Follow Up With: John Nick Jr, MD [Primary Care Provider] - - Diet and Activity Activity: ambulate only with your walker, as per physical therapy, increase activity as tolerated Diet: diabetic diet - VTE Documentation of Mechanical Device: Graduated compression elastic hosiery
[2018-02-18] MEDS: Methocarbamol 750 MG TABLET PO PRN ×3 (00:59→17:41)
[2018-02-18] MEDS: *HR* OxyCODONE Immed Rel 15 MG TABLET PO PRN ×4 (04:49→20:07)
[2018-02-18] MEDS: Multivit/Ca/Min/Fe/FA 1 TAB TABLET PO SCH (08:05)
[2018-02-18] MEDS: *HR* Metformin 500 MG TABLET PO SCH ×2 (08:05→17:29)
[2018-02-18] MEDS: Gabapentin 300 MG CAPSULE PO SCH ×3 (08:05→20:00)
[2018-02-18] MEDS: Verapamil ER (24 HR) 240 MG TABLET.ER PO SCH (08:05)
[2018-02-18] MEDS: Aspirin Enteric Coated 81 MG Tablet PO SCH (08:06)
[2018-02-18] MEDS: hydroCHLOROthiazide 25 MG TABLET PO SCH (08:06)
[2018-02-18] MEDS: Magnesium Oxide 400 MG TABLET PO SCH (08:08)
--- NOTE | 2018-02-18 16:29 | Internal Med Progress Note ---
Date of Encounter: 02/18/18 Time of Encounter: 16:27 - Assessment and plan (1) Status post lumbar spinal fusion Current Visit: Yes Status: Acute Assessment and plan: She continues to well with therapies and is proceeding to discharge in a couple or 3 days. (2) DMII (diabetes mellitus, type 2) Current Visit: Yes Status: Chronic Assessment and plan: This is clinically stable and we will continue current regimen and follow. 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 We will continue current regimen and follow. Qualifiers: Hypertension type: essential hypertension Qualified Code(s): I10 - Essential (primary) hypertension (4) Acute blood loss anemia Current Visit: No Status: Acute Assessment and plan: This is clinically stable and well tolerated, symptomatically. (5) Contact dermatitis Current Visit: Yes Status: Acute Assessment and plan: This is improving. Qualifiers: Contact dermatitis type: unspecified Contact dermatitis trigger: unspecified trigger Qualified Code(s): L25.9 - Unspecified contact dermatitis , unspecified cause - Subjective Interval history: Patient states she is doing fine. She has chronic back pain but this is actually improved. She also states that her leg pain is improving. She has been moving bowels and bladder well without complaint. Discussed her discharge on Tuesday or Tuesday. Patient has no complaint of chest discomfort, dyspnea, orthopnea, palpitations, nausea or vomiting, constipation or diarrhea, other changes in bowel habits, difficulty with urination, rash or itching, or other new complaints, except as mentioned above. Review of systems is otherwise negative. I discussed management of her care with nursing staff. - Constitutional Vitals: Temp Pulse Resp BP Pulse Ox 97.9 F 65 16 137/77 95 02/18/18 09:00 02/18/18 07:39 02/18/18 07:39 02/18/18 07:39 02/18/18 07:39 General appearance: Present: pleasant Exam: Examination: (Except as mentioned above): General: In no apparent distress. Alert and oriented 3. Nondiaphoretic. Head: Atraumatic and normocephalic. Respiratory: No use of accessory muscles. Lungs are clear throughout. Normal airflow. Cardiovascular: Regular rate and rhythm without murmur appreciated. Abdomen: Bowel sounds are normal. No hepatosplenomegaly mass or tenderness appreciated. Obese and therefore difficult to palpate deeply. Extremities: No cyanosis clubbing or edema. Skin: Warm and non-diaphoretic with no new lesions noted. Internal Medicine: Result - Labs CBC & Chem 7: 02/17/18 06:25 02/17/18 06:25 - VTE Documentation of Mechanical Device: Graduated compression elastic hosiery Consult Discharge Plan - Plan Referrals: John Nick Jr, MD [Primary Care Provider] -
[2018-02-19] MEDS: *HR* OxyCODONE Immed Rel 15 MG TABLET PO PRN ×5 (00:20→17:26)
[2018-02-19] MEDS: Methocarbamol 750 MG TABLET PO PRN ×3 (01:24→20:00)
[2018-02-19] MEDS: Gabapentin 300 MG CAPSULE PO SCH ×3 (08:21→19:59)
[2018-02-19] MEDS: Aspirin Enteric Coated 81 MG Tablet PO SCH (08:22)
[2018-02-19] MEDS: Multivit/Ca/Min/Fe/FA 1 TAB TABLET PO SCH (08:22)
[2018-02-19] MEDS: *HR* Metformin 500 MG TABLET PO SCH ×2 (08:22→17:26)
[2018-02-19] MEDS: Verapamil ER (24 HR) 240 MG TABLET.ER PO SCH (08:22)
[2018-02-19] MEDS: hydroCHLOROthiazide 25 MG TABLET PO SCH (08:22)
[2018-02-19] MEDS: Magnesium Oxide 400 MG TABLET PO SCH (08:24)
--- NOTE | 2018-02-19 12:59 | Internal Med Progress Note ---
Date of Encounter: 02/19/18 Time of Encounter: 12:57 - Assessment and plan (1) Status post lumbar spinal fusion Current Visit: Yes Status: Acute Assessment and plan: Patient noted to have a minimal amount of serous type drainage status and present in her dressing from her midline lower lumbar surgical incision. Surgical incision remains intact but noted increased erythema surrounding the incision. No tenderness or drainage expelled during palpation. Afebrile. Most recent WBC at 10. Patient continues to complain of radicular symptoms down the right hip around to her right groin. States the pain is similar in characteristics to preoperative pain. Surgical incision appears healthy. She continues to use TLSO brace. Patient is scheduled to follow-up with orthopedics on Tuesday. We will have nursing paint surgical incision with Betadine and change dressing daily. We will start doxycycline. Patient denies any headaches or any other symptoms of a possible dura leak. Patient continues to participate in physical therapy and progressing well. Continues to be prepared for possible discharge tomorrow (2) HTN (hypertension) Current Visit: Yes Status: Chronic Assessment and plan: Vital signs stable. We will continue with current medications Qualifiers: Hypertension type: essential hypertension Qualified Code(s): I10 - Essential (primary) hypertension (3) DMII (diabetes mellitus, type 2) Current Visit: Yes Status: Chronic Assessment and plan: No acute issues. Fingerstick showed glucose has been fairly well-controlled with most readings less than 150. 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 Patient denies any fever or chills. Patient denies any pain to the surgical incision. Patient continues to complain of right hip and leg radicular symptoms that intermittently occurred. Patient states that her pain is somewhat better controlled over the past few days with current adjustments. Patient states that her pain is similar to her preoperative symptoms patient describes pain as a sharp pain that radiates down the right hip. Denies any decreased sensation. Denies any motor deficits. Denies any other discomforts or shortness of breath. Denies any constipation - Constitutional Vitals: Temp Pulse Resp BP Pulse Ox 98.5 F 58 16 160/93 97 02/19/18 07:19 02/19/18 07:19 02/19/18 07:19 02/19/18 07:19 02/19/18 07:19 General appearance: Present: A&O X 3, pleasant - Head Head exam: Present: atraumatic, normocephalic - Eye Eye exam: Present: PERRL, conjuntiva pink, sclera anicteric Pupils: Present: PERRL - Neck Neck exam general surgery: Present: supple, trachea midline. Absent: lymphadenopathy - Respiratory Respiratory exam: Present: CTAB. Absent: accessory muscle use, rales, rhonchi, wheezes - Cardiovascular Cardiovascular exam: Present: RRR, +S1, +S2. Absent: diastolic murmur, gallop, rubs, systolic murmur - GI/Abdominal GI/Abdominal exam: Present: normal bowel sounds, soft, no peritoneal signs. Absent: distended, tenderness - Extremities Exam Extremities exam: Present: warm, radial pulses palpable and symmetrical. Absent : calf tenderness, cyanotic, pedal edema - Back Exam Additional comments: Midline lumbar incision currently appears intact but noted erythema surrounding incision area. Noted serous-type drainage 2 surgical dressing but no drainage noted directly from incision. No tenderness on palpation. No drainage expelled during palpation - Neurological Exam Neurological exam: Present: CN II-XII intact, oriented X3, no focal deficits. Absent: pronater drift, facial droop, speech deficit Additional comments: Slight pain on right hip drain right leg left. No hyperreflexia or clonus - Skin Skin exam: Present: dry, intact Internal Medicine: Result - Labs CBC & Chem 7: 02/17/18 06:25 02/17/18 06:25 - VTE Documentation of Mechanical Device: Graduated compression elastic hosiery Consult Discharge Plan - Plan Referrals: John Nick Jr, MD [Primary Care Provider] -
[2018-02-19] MEDS: Doxycycline 100 MG CAPSULE PO SCH (19:59)
[2018-02-19] MEDS: *HR* OxyCODONE Immed Rel 5 MG TABLET PO PRN (21:40)
[2018-02-20] MEDS: *HR* OxyCODONE Immed Rel 15 MG TABLET PO PRN ×3 (02:24→11:07)
[2018-02-20 08:17] VITALS: BP 140/66
[2018-02-20] MEDS: hydroCHLOROthiazide 25 MG TABLET PO SCH (08:29)
[2018-02-20] MEDS: Verapamil ER (24 HR) 240 MG TABLET.ER PO SCH (08:29)
[2018-02-20] MEDS: Multivit/Ca/Min/Fe/FA 1 TAB TABLET PO SCH (08:29)
[2018-02-20] MEDS: Magnesium Oxide 400 MG TABLET PO SCH (08:29)
[2018-02-20] MEDS: Methocarbamol 750 MG TABLET PO PRN (08:29)
[2018-02-20] MEDS: Doxycycline 100 MG CAPSULE PO SCH (08:29)
[2018-02-20] MEDS: *HR* Metformin 500 MG TABLET PO SCH (08:29)
[2018-02-20] MEDS: Aspirin Enteric Coated 81 MG Tablet PO SCH (08:29)
[2018-02-20] MEDS: Gabapentin 300 MG CAPSULE PO SCH (08:29)
== END 2018-02-20 12:16 | disposition home or self-care (01) | DRG 949 ==
LOC: INPGRE 16:58